=== PATIENT | female | born 1985 | race Caucasian/White ===

== ENCOUNTER 2019-09-10 08:45 | Emergency (ER) | payer OTHER ==
[~2019-09-10] VITALS: Ht 160 cm; Wt 101.0 kg
[2019-09-10 08:45] VITALS: BP 134/78
[2019-09-10] MEDS ORDERED: PRENATAL VITS (08:51)
[2019-09-10] MEDS ORDERED: [UNRECOGNIZED DRUG - REMARK] (08:51)
== END 2019-09-10 09:43 | disposition home or self-care (01) ==
LOC: M ED 08:45
DX: O98.512 Other viral diseases complicating pregnancy, second trimester (principal); J02.9 Acute pharyngitis, unspecified; Z3A.13 13 weeks gestation of pregnancy

== ENCOUNTER 2019-09-13 00:32 | Emergency (ER) | payer OTHER ==
[~2019-09-13] VITALS: Ht 160 cm; Wt 100.0 kg
[~2019-09-13 00:32] MED LIST: PRENATAL VITS; [UNRECOGNIZED DRUG - REMARK]
[2019-09-13] MEDS ORDERED: ACET-683 PO (00:38)
[2019-09-13] MEDS ORDERED: AMOXICILLIN 500 MG CAP PO ONE (02:45)
[2019-09-13] MEDS ORDERED: DEXTROMETHORPHAN 60MG/10ML SUSP 90ML BTL(DELSYM) PO PRN (02:45)
[2019-09-13] MEDS ORDERED: AMOX500C PO (02:50)
[2019-09-13 03:07] VITALS: BP 132/74
== END 2019-09-13 03:08 | disposition home or self-care (01) ==
LOC: M ED 00:32
DX: O99.511 Diseases of the respiratory system complicating pregnancy, first trimester (principal); J02.0 Streptococcal pharyngitis; Z3A.13 13 weeks gestation of pregnancy

== ENCOUNTER → 2020-03-04 | Outpatient (CLI) | payer OTHER ==
[~2020-03-04] MED LIST changes: +ACET-683 PO; +AMOX500C PO; +ASPI81TA86 PO; +PRENTAB9 PO; +TUMS750C5 PO; +VALT500T PO
--- NOTE | 2020-03-04 23:35 | REP ---
REASON: Size/date discrepancy. There are no priors for comparison. Multiple ultrasonographic images of the gravid uterus show a single living intrauterine gestation in the cephalic presentation. Doppler interrogation of heart shows the heart rate 129 beats per minute. The placenta is posterior and not low lying. The subjective amniotic fluid volume is within normal limits. The cervix measures 3.9 cm in length and is closed. CHART: BPD 9.7 cm = 39 weeks 6 days HC 34.4 cm = 39 weeks 5 days AC 36.1 cm = 40 weeks 0 days FL 7.3 cm = 37 weeks 4 days The estimated weight is 3789 grams, which is at the 81st percentile for a 38-week 1-day gestational age. The calculated amniotic fluid index is 13.6 with an expected range 7.3 to 23.8. IMPRESSION: Single living intrauterine gestation, as described above, with an estimated gestational age of 38 weeks 3 days via composite criteria and an estimated date of delivery of 03/15/2020 by today's exam.
== END ==
LOC: M WHC 13:34
PROVIDERS: ATTEND Obstetrics & Gynecology
DX: O26.843 Uterine size-date discrepancy, third trimester (principal)

== ENCOUNTER 2020-03-13 05:48 | Inpatient (IN) | payer OTHER ==
[~2020-03-13] VITALS: Ht 160 cm; Wt 105.8 kg
[~2020-03-13 05:48] MED LIST changes: -ASPI81TA86 PO; -PRENTAB9 PO; -TUMS750C5 PO; -VALT500T PO
[2020-03-13 06:07] VITALS: BP 113/60
--- NOTE | 2020-03-13 06:36 | IPNPDOC ---
Text Note Date of Service The patient was seen on 03/13/20. NOTE 34yo 39.3wk. No chart available. C/o ctx since 399. No LOF or VB. Good movement. VS WNL GEN Uncomfortable ABD Gravid NT SVE 2/50/-3 LE no edema, NT FHT: category 1, 140s, reactive, no decels, ctx q2-3 A/P: Fetus reassuring. Early labor. Will give stadol 1mg and reecheck in 2hr. VS,Fishbone, I+O VS, Fishbone, I+O Vital Signs Date Time Temp Pulse Resp B/P (MAP) Pulse Ox O2 Delivery O2 Flow Rate FiO2 03/13/20 06:07 97.6 106 113/60 (77) Kathleen Hodgson MD Mar 13, 2020 06:36
[2020-03-13] MEDS ORDERED: BUTORPHANOL 2 MG/ML INJ (J0595) IV ONE (06:45)
[2020-03-13 07:08] VITALS: BP 110/62
[2020-03-13] MEDS ORDERED: PRENTAB9 PO (07:47)
[2020-03-13] MEDS ORDERED: VALT500T PO (07:47)
[2020-03-13] MEDS ORDERED: TUMS750C5 PO (07:47)
[2020-03-13] MEDS ORDERED: ASPI81TA86 PO (07:47)
[2020-03-13] MEDS ORDERED: LR 1,000 ML IV SCH (09:25)
[2020-03-13] MEDS ORDERED: LACTATED RINGER'S 1000 ML IV STA (09:25)
[2020-03-13 09:44] LABS: HEMOGLOBIN 11.4 g/dl (12.0-15.5); MEAN CORPUSCULAR HEMOGLOBIN 25.8 pg (27.0-33.0); MEAN CORPUSCULAR HGB CONC 31.7 g/dl (32.0-36.5); MEAN CORPUSCULAR VOLUME 81.4 fl (80.0-96.0); PLATELET COUNT, AUTOMATED 249 10^3/uL (150-450); RED BLOOD COUNT 4.42 10^6/uL (4.00-5.40); WHITE BLOOD COUNT 9.9 10^3/uL (4.0-10.0)
--- NOTE | 2020-03-13 09:47 | HPEPDOC ---
Obstetrical History & Physical General Date of Admission Mar 13, 2020 at 09:14 History of Present Illness 34-year-old 3, para 1 at 39 weeks 4 days [facility] with complaints of contractions. She is reporting contractions throughout the morning that have increasing intensity and frequency. She denies any vaginal bleeding or leakage fluid. She reports active movement. care was initiated in the first trimesters and has been appropriate throughout. Her course is remarkable for A1 gestational diabetes Chief Complaint: Contractions, term Information Provided By: Patient Age: 34 : 3 Livin Care Care: Good Care Number of Visits: 10 Dating Final EDC: Mar 17, 2020 Final EDC by: 1st trimester (US) EGA at Admission: 39 Past Medical History Past Obstetrical History : Past Obstetrical History: Multigravida Type of Delivery: Spontaneous Vaginal Del. 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 History: Herpes simplex virus(HSV) Past Medical History Surgical History: [place] teeth Family History Significant Family History: No pertinent family hx Social History Marital Status: Family situation: Spouse/partner home Psychosocial History: No pertinent psych hx * Smoker: non-smoker Alcohol: Denies Drugs: denies Imunizations Tdap status: current Influenza Status: declined Allergies Coded Allergies: No Known Allergies (Unverified , 09/10/19) Medications Scheduled Aspirin (Aspir 81) 81 Mg Tablet.dr, 1 TAB PO DAILY for pain No.137/Iron/Folic Acd ( Vitamin Tablet) 1 Each Tablet, 1 TAB PO DAILY Valacyclovir HCl (Valtrex) 500 Mg Tablet, 1 TAB PO DAILY Scheduled PRN Calcium Carbonate (Tums) 300 Mg Tab.chew, 1 TAB PO Q6HP PRN for INDIGESTION Physical Examination Physical Examination GENERAL: Alert and oriented times three. BREAST: . ABDOMEN: Gravid and non-tender to touch. FETUS: Is vertex (VTX) by sterile vaginal examination (SVE), fetus is vertex (VTX) by Alexis. HEART RATE: Regular rate and rhythm. LUNGS: Clear to auscultation (CTA). Vital Signs/I&O Vital Signs Date Time Temp Pulse Resp B/P (MAP) Pulse Ox O2 Delivery O2 Flow Rate FiO2 03/13/20 07:11 16 03/13/20 07:08 97.3 103 110/62 (78) 98 Room Air Laboratory Data 24H LABS Laboratory Tests 2 03/13/20 06:45: CBC/BMP Pertinent Laboratoy Data Blood Type: A+ RBC Antibody Screen: Negative HIV: Negative Hepatitis B: Negative Rapid Plasma Reagin: Nonreactive Rubella: Immune Chlamydia/Gonorrhea: Negative Group B Streptococcus: Negative Anatomy Ultrasound Placenta Location: Posterior Placenta Previa: No Vaginal Examination Dilation: 4 cm Effacement: 70% Station: -2 Cervical Consistency: Medium Cervical Position: Posterior Presentation: Cephalic presentation Assessment Variability: Moderate Accelerations: Positive Tocometer Contractions: Yes Frequency: regular Assessment/Plan Assessment 34-year-old 3, para 1 at 39 weeks 4 days estimated gestational age in active labor. Reassuring status. Plan Admit and orient. Processing Assistant and consent. Diet: Clears. Group B Streptococcus (GBS) negative. Labs and intravenous (IV) per unit protocol. Counseled on Pitocin and induction of labor (IOL). Lactated Ringers (LR): Bolus 1000 mL, then at 125 mL/hr. Anticipate normal spontaneous delivery (). Requested epidural C-S as appropriate. DWAYNE HUYNH MD. Mar 13, 2020 09:47
[2020-03-13] MEDS ORDERED: FENTANYL 2MCG/ML ROPIVACAINE 0.2% IN 0.9% NACL 100ML IVBAG As Ordered ONE (10:03)
[2020-03-13 10:17] VITALS: BP 118/83
[2020-03-13] MEDS ORDERED: ePHEDrine SULFATE 25 MG/5 ML(5MG/ML) SYRINGE As Ordered ONE (12:00)
[2020-03-13] MEDS ORDERED: EPIDURAL/PCA KEYS XX PRN (12:15)
[2020-03-13] MEDS ORDERED: NALOXONE INJ 0.4MG/1ML VIAL (J2310 PER 1MG) IV PRN (12:15)
[2020-03-13] MEDS ORDERED: EPIDURAL COMMENT XX SCH (12:15)
[2020-03-13] MEDS ORDERED: diphenhydrAMINE 50MG/ML VIAL (J1200) IV PRN (12:15)
[2020-03-13] MEDS ORDERED: REFRIGERATOR IV KEYS XX PRN (12:15)
[2020-03-13] MEDS ORDERED: ePHEDrine SULFATE 25 MG/5 ML(5MG/ML) SYRINGE IV PRN (12:15)
[2020-03-13] MEDS ORDERED: LACTATED RINGER'S 1000 ML IV PRN (12:15)
[2020-03-13] MEDS ORDERED: FENTANYL/ROPIVACAINE/NACL BAG 100 ML EPIDURAL SCH (12:15)
[2020-03-13] MEDS ORDERED: ONDANSETRON 4MG/2ML VIAL IV PRN (12:15)
[2020-03-15] MEDS ORDERED: DOCUSATE SODIUM 100 MG CAP ONE (02:48)
[2020-03-15] MEDS ORDERED: IBUPROFEN 800 MG TAB ONE (02:48)
[2020-03-15] MEDS ORDERED: PERCOCET 5MG/325MG TAB ONE (02:48)
[2020-03-15] MEDS ORDERED: DOCUSATE SODIUM 100 MG CAP As Ordered ONE (09:43)
[2020-03-15] MEDS ORDERED: PRENATAL VITAMINS CHEWABLE TABLET As Ordered ONE (09:43)
[2020-03-15] MEDS ORDERED: PERCOCET 5MG/325MG TAB As Ordered ONE ×2 (09:43→10:03)
== END 2020-03-15 13:40 | disposition home or self-care (01) | DRG 773 ==
LOC: M LDO 05:48 → M LDI 09:14
PROVIDERS: ADMIT Obstetrics & Gynecology; ATTEND Obstetrics & Gynecology
PROC: 10D00Z1 Extraction of Products of Conception, Low, Open Approach (ICD-10-PCS; principal; 2020-03-13)
DX: O24.429 Gestational diabetes mellitus in childbirth, unspecified control (principal); Z37.0 Single live birth; Z3A.39 39 weeks gestation of pregnancy; O62.0 Primary inadequate contractions

== ENCOUNTER 2022-01-10 07:12 | Emergency (ER) | payer OTHER ==
[~2022-01-10] VITALS: Ht 160 cm; Wt 117.0 kg
[~2022-01-10 07:12] MED LIST changes: +ASPI81TA86 PO; +PRENTAB9 PO; +TUMS750C5 PO; +VALT500T PO
[2022-01-10 07:13] VITALS: BP 135/70
[2022-01-10] MEDS ORDERED: AZIT-12 (07:22)
[2022-01-10] MEDS ORDERED: FLUO10CA18 (07:22)
[2022-01-10] MEDS ORDERED: ACET-683 PO (07:22)
[2022-01-10 08:37] LABS: BASO % 0.4 % (0.0-1.0); EOS # 0.2 10^3/uL (0.0-0.5); EOS % 2.3 % (0.0-3.0); HEMATOCRIT 42.6 % (36.0-47.0); HEMOGLOBIN 13.9 g/dl (12.0-15.5); LYMPH # 2.2 10^3/uL (1.5-5.0); LYMPH % 20.8 % (24.0-44.0); MEAN CORPUSCULAR HGB CONC 32.6 g/dl (32.0-36.5); MEAN CORPUSCULAR VOLUME 85.7 fl (80.0-96.0); MONO # 0.6 10^3/uL (0.0-0.8); NEUTROPHILS # 7.4 10^3/uL (1.5-8.5); NEUTROPHILS % 70.1 % (36.0-66.0); PLATELET COUNT, AUTOMATED 302 10^3/uL (150-450); RED BLOOD COUNT 4.97 10^6/uL (4.00-5.40); WHITE BLOOD COUNT 10.6 10^3/uL (4.0-10.0)
[2022-01-10 09:03] LABS: MONO REFLEX EBV COMP NEGATIVE (NEGATIVE)
[2022-01-10] MEDS ORDERED: AMOX875T2 PO (09:23)
[2022-01-12 14:09] LABS: EBV AB TO NUCLEAR ANTIGEN >600.0 U/mL (0.0-17.9); EBV VIRAL CAPSID AG IgG >600.0 U/mL (0.0-17.9); EBV VIRAL CAPSID AG IgM <36.0 U/mL (0.0-35.9)
== END 2022-01-10 09:44 | disposition home or self-care (01) ==
LOC: M ED 07:12
DX: J02.9 Acute pharyngitis, unspecified (principal); J45.909 Unspecified asthma, uncomplicated; Z79.899 Other long term (current) drug therapy

== ENCOUNTER → 2022-01-13 | Outpatient (CLI) | payer OTHER ==
[~2022-01-13] MED LIST changes: +AMOX875T2 PO; +AZIT-12; +FLUO10CA18
== END ==
LOC: M PLAIMG 11:09
PROVIDERS: ATTEND Family Medicine
DX: J32.9 Chronic sinusitis, unspecified (principal)

== ENCOUNTER 2022-07-20 10:59 | Day surgery (SDC) | payer OTHER ==
[~2022-07-20] VITALS: Ht 160 cm; Wt 104.3 kg
[~2022-07-20 10:59] MED LIST changes: +PHEN30CA21 PO; +TOPI25TA10 PO; +dexameTHASONE 4 MG/ML 1ML VIAL (J1100 PER 1MG) IV ONE
[2022-07-20] MEDS ORDERED: SCOPOLAMINE 1MG TRANSDERMAL PATCH TOP ONE (12:40)
[2022-07-20] MEDS ORDERED: MIDAZOLAM INJ 2MG/2ML VIAL (J2250 PER 1MG) As Ordered ONE (12:54)
[2022-07-20] MEDS ORDERED: ONDANSETRON 4MG 2ML VIAL As Ordered ONE (12:54)
[2022-07-20] MEDS ORDERED: ROCURONIUM BROMIDE 50 MG/5 ML VIAL As Ordered ONE (12:54)
[2022-07-20] MEDS ORDERED: ACETAMINOPHEN 1000MG 100ML IV BAG As Ordered ONE (12:54)
[2022-07-20] MEDS ORDERED: propofoL 200 MG/20 ML VIAL As Ordered ONE (12:54)
[2022-07-20] MEDS ORDERED: dexameTHASONE 4 MG/ML 1ML VIAL (J1100 PER 1MG) As Ordered ONE (12:54)
[2022-07-20] MEDS ORDERED: fentaNYL 100 MCG/2 ML INJECTION As Ordered ONE (12:55)
[2022-07-20] MEDS ORDERED: ONDANSETRON 4MG 2ML VIAL IV PRN (14:05)
[2022-07-20] MEDS ORDERED: fentaNYL 100 MCG/2 ML INJECTION IV PRN (14:05)
[2022-07-20] MEDS: oxyCODONE 5MG TAB PO PRN ×2 (14:29→15:53)
[2022-07-20 16:15] VITALS: BP 105/61
== END 2022-07-20 16:18 | disposition home or self-care (01) ==
LOC: M SDC 10:59
PROVIDERS: ATTEND Otolaryngology
DX: J35.01 Chronic tonsillitis (principal); Z88.8 Allergy status to other drugs, medicaments and biological substances
CPT/HCPCS: 42826; 88302; J0131; J1100; J2250; J2405; J3010